=== PATIENT | male | born 1995 | race American Indian/Alaskan Native ===

== ENCOUNTER 2020-10-12 08:53 | Emergency (ER) | payer SELFPAY ==
[2020-10-12 09:02] VITALS: BP 126/70
[2020-10-12] MEDS ORDERED: dexAMETHasone 20 MG/5 ML VIAL IM ONE (11:24)
--- NOTE | 2020-10-12 11:32 | Emergency Department Report ---
ED ENT HPI - General Chief complaint: Sore Throat Stated complaint: THROAT SWELLING/CANT SPEAK Time Seen by Provider: 10/12/20 11:24 Source: patient Mode of arrival: Ambulatory Limitations: No Limitations - History of Present Illness Initial comments: pt is a 25-year-old male who presents emergency room with complaints of a sore throat that began 2 days ago. He states that it feels like it is swelling in the back of his throat. He has associated subjective fever, chills, pain with swallowing. He is still able to tolerate p.o. intake and his secretions. He denies any vomiting, diarrhea, cough, ear pain, shortness of breath, abdominal pain. He states that he has had a sick contact with his daughter who had a fever and she is currently in daycare but he is not sure what her fever is from. He states that he was diagnosed with pharyngitis 3 months ago and had the same symptoms. He denies any past medical history. No allergies to medications. - Related Data Previous Rx's Medication Instructions Recorded Last Taken Type Amoxicillin/Potassium Clav 1 each PO BID 10 Days #20 tablet 10/12/20 Unknown Rx [Augmentin 875-125 Tablet] Ibuprofen [Motrin 600 MG tab] 600 mg PO Q8H PRN #20 tablet 10/12/20 Unknown Rx Allergies Allergy/AdvReac Type Severity Reaction Status Date / Time No Known Allergies Allergy Unverified 10/12/20 09:00 ED Dental HPI - General Chief complaint: Sore Throat Stated complaint: THROAT SWELLING/CANT SPEAK Time Seen by Provider: 10/12/20 11:24 Source: patient Mode of arrival: Ambulatory Limitations: No Limitations - Related Data Previous Rx's Medication Instructions Recorded Last Taken Type Amoxicillin/Potassium Clav 1 each PO BID 10 Days #20 tablet 10/12/20 Unknown Rx [Augmentin 875-125 Tablet] Ibuprofen [Motrin 600 MG tab] 600 mg PO Q8H PRN #20 tablet 10/12/20 Unknown Rx Allergies Allergy/AdvReac Type Severity Reaction Status Date / Time No Known Allergies Allergy Unverified 10/12/20 09:00 ED Review of Systems ROS: Stated complaint: THROAT SWELLING/CANT SPEAK Other details as noted in HPI Comment: All other systems reviewed and negative ED Past Medical Hx - Past Medical History Previous Medical History?: No - Surgical History Past Surgical History?: No - Medications Home Medications: Home Medications Medication Instructions Recorded Confirmed Last Taken Type Amoxicillin/Potassium Clav 1 each PO BID 10 Days #20 tablet 10/12/20 Unknown Rx [Augmentin 875-125 Tablet] Ibuprofen [Motrin 600 MG tab] 600 mg PO Q8H PRN #20 tablet 10/12/20 Unknown Rx ED Physical Exam - General Limitations: No Limitations General appearance: alert, in no apparent distress - Head Head exam: Present: atraumatic, normocephalic - Eye Eye exam: Present: normal appearance - ENT ENT exam: Present: mucous membranes moist, TM's normal bilaterally, normal external ear exam, other (bilateral tonsillar hypertrophy and exudates, posterior oropharynx erythema, uvula is midline, no uvular edema or deviation, no trismus, no muffled voice, no tongue elevation) - Respiratory Respiratory exam: Present: normal lung sounds bilaterally. Absent: respiratory distress, wheezes, rales, rhonchi, stridor, chest wall tenderness, accessory muscle use, decreased breath sounds, prolonged expiratory - Cardiovascular Cardiovascular Exam: Present: regular rate, normal rhythm, normal heart sounds. Absent: systolic murmur, diastolic murmur, rubs, gallop - Neurological Exam Neurological exam: Present: alert, oriented X3 - Psychiatric Psychiatric exam: Present: normal affect, normal mood - Skin Skin exam: Present: warm, dry, intact ED Course Vital Signs 10/12/20 09:01 Temperature 99.1 F Pulse Rate 106 H Respiratory 18 Rate Blood Pressure 126/70 O2 Sat by Pulse 95 Oximetry ED Medical Decision Making - Medical Decision Making pt is a 25-year-old male who presents emergency room with complaints of a sore throat that began 2 days ago. He states that it feels like it is swelling in the back of his throat. He has associated subjective fever, chills, pain with swallowing. He is still able to tolerate p.o. intake and his secretions. He denies any vomiting, diarrhea, cough, ear pain, shortness of breath, abdominal pain. He states that he has had a sick contact with his daughter who had a fe sky and she is currently in daycare but he is not sure what her fever is from. He states that he was diagnosed with pharyngitis 3 months ago and had the same symptoms. He denies any past medical history. No allergies to medications. VSS. on exam: bilateral tonsillar hypertrophy and exudates, posterior oropharynx erythema, uvula is midline, no uvular edema or deviation, no trismus, no muffled voice, no tongue elevation. Examination is consistent with tonsillitis, no signs of peritonsillar abscess at this time, patient is maintaining his airway without any difficulty. Patient given dexamethasone IM while in the emergency department. Patient given prescription for Augmentin. Advised patient Please take medication as prescribed. Increase your water intake. Gargle with warm salt water 3-5 times a day. Throw away your toothbrush. Do not drink after others and do not allow anyone to drink after you. Follow-up with your primary care doctor for reexamination. Return to emergency room immediately for any new or worsening symptoms. - Differential Diagnosis Pharyngitis, tonsillitis, mononucleosis, viral syndrome Critical care attestation.: If time is entered above; I have spent that time in minutes in the direct care of this critically ill patient, excluding procedure time. ED Disposition Clinical Impression: Tonsillitis Disposition: TO HOME OR SELFCARE Is pt being admited?: No Does the pt Need Aspirin: No Condition: Stable Instructions: Tonsillitis, [id number] Additional Instructions: Please take medication as prescribed. Increase your water intake. Gargle with warm salt water 3-5 times a day. Throw away your toothbrush. Do not drink after others and do not allow anyone to drink after you. Follow-up with your primary care doctor for reexamination. Return to emergency room immediately for any new or worsening symptoms. Prescriptions: Amoxicillin/Potassium Clav [Augmentin 875-125 Tablet] 1 each PO BID 10 Days #20 tablet Ibuprofen [Motrin 600 MG tab] 600 mg PO Q8H PRN #20 tablet PRN Reason: fever, pain Referrals: RANDY MARIN MD [Primary Care Provider] - 2-3 Days RYAN OROZCO MD [Staff Physician] - 2-3 Days [facility] [Provider Group] - 2-3 Days Time of Disposition: 11:30 Print Language: PERUVIAN
== END 2020-10-12 11:44 | disposition home or self-care (01) ==
LOC: ED 08:53
DX: J03.90 Acute tonsillitis, unspecified (principal); Z79.899 Other long term (current) drug therapy
CPT/HCPCS: 96372; 99282; J1100